=== PATIENT | female | born 1995 | race Caucasian/White ===

== ENCOUNTER → 2016-11-27 | Outpatient (CLI) | payer OTHER ==
--- NOTE | 2016-11-27 15:06 | DIAGNOSTIC IMAGING REPORT ---
RIGHT FOOT MIN 3 VIEWS ROUTINE CLINICAL HISTORY: Right lateral foot pain COMPARISON: None. DISCUSSION: No fractures or dislocations are visualized. There are no erosive or destructive changes. IMPRESSION: 1. No fractures identified 2. No evidence of erosive disease Electronically signed by: Filiberto Oconnor M.D. 11/27/2016 3:05 PM Dictated Date/Time: 11/27/2016 3:04 PM
== END | disposition home or self-care (01) ==
LOC: C.LAB1850 14:22
PROVIDERS: ATTEND Nurse Practitioner Adult Health
DX: M79.671 Pain in right foot (principal)